=== PATIENT | female | born 1945 | race Caucasian/White ===

== ENCOUNTER 2017-08-26 14:58 | Inpatient (IN) | payer MEDICARE ==
[2017-08-26] MEDS ORDERED: Albuterol Sulfate 2.5 mg/0.5 ml Neb ONE (15:32)
[2017-08-26] MEDS ORDERED: Magnesium Sulfate 2 GM/100 ML BAG ONE (15:32)
[2017-08-26] MEDS ORDERED: Albuterol Sulfate 2.5 mg/3 ml Neb ONE (15:33)
[2017-08-26 16:44] LABS: Troponin I Less than 0.010 ng/mL (< 0.028)
[2017-08-26 19:49] LABS: Troponin I 0.012 ng/mL (< 0.028)
[2017-08-26] MEDS ORDERED: Acetaminophen 325 MG TAB PO PRN (20:40)
[2017-08-26] MEDS ORDERED: Ondansetron HCl/PF 4 MG/2 ML Vial IVP PRN (20:40)
[2017-08-26] MEDS ORDERED: Ondansetron ODT 4 MG TAB SL PRN (20:40)
[2017-08-26] MEDS ORDERED: Albuterol Sulfate 2.5 mg/3 ml Neb NEB PRN ×2 (20:41→20:55)
[2017-08-26] MEDS ORDERED: HYDROcodone/Acetaminophen 10/325 mg Tablet PO PRN (20:55)
[2017-08-26] MEDS ORDERED: Ondansetron ODT 4 MG TAB PO PRN (20:55)
[2017-08-26] MEDS ORDERED: Enoxaparin Sodium 40 MG/0.4 ML SYRINGE SC SCH (20:55)
[2017-08-26] MEDS ORDERED: HYDROcodone/Acetaminophen 5/325 mg Tablet PO PRN (20:55)
[2017-08-26 21:16] VITALS: BMI 23.6
[2017-08-26] MEDS: Famotidine 20 MG TAB PO SCH (21:43)
[2017-08-26] MEDS: guaiFENesin ER 600 MG TAB PO SCH (21:43)
[2017-08-27] MEDS: Guaifenesin DM 100-10/5 ML UDCUP PO PRN ×2 (00:05→11:09)
[2017-08-27 04:43] LABS: #Lymphocytes 0.6 thou/uL (1.20-3.40); #Monocytes 0.3 thou/uL (0.11-0.59); #Neutrophils 11.7 thou/uL (1.40-6.50); %Eosinophils 0.1 % (0.0-10.0); %Lymphocytes 4.8 % (21.0-51.0); %Monocytes 2.1 % (0.0-10.0); Hemoglobin 12.1 g/dL (12.0-16.0); Mean Corpuscular HGB CONC 31.4 g/dL (32.0-36.0); Mean Corpuscular Hemoglobin 30.6 pg (27.0-31.0); Mean Corpuscular Volume 97.5 fl (81.0-99.0); Mean Platelet Volume 10.6 fL (7.4-10.4); Platelet Count 168 thou/uL (130-400); RBC Distribution Width 12.5 % (11.5-14.5); Red Blood Cell (RBC) Count 3.95 mill/uL (4.20-5.40); White Blood Cell (WBC) Count 12.6 thou/uL (4.8-10.8)
[2017-08-27 05:03] LABS: Anion Gap 10 mmol/L (10-20); BUN (Urea Nitrogen) 16 mg/dL (9.8-20.1); Calc. Creatinine Clearance 85 mL/min (70-130); Calcium 9.2 mg/dL (7.8-10.44); Carbon Dioxide 29 mmol/L (23-31); Chloride 101 mmol/L (98-107); Estimated GFR-MDRD Greater than 90; Glucose 180 mg/dL (80-115); Potassium 4.4 mmol/L (3.5-5.1); Sodium 136 mmol/L (136-145)
[2017-08-27] MEDS: Famotidine 20 MG TAB PO SCH ×2 (08:20→20:07)
[2017-08-27] MEDS: guaiFENesin ER 600 MG TAB PO SCH ×2 (08:20→20:08)
[2017-08-27] MEDS: Enoxaparin Sodium 40 MG/0.4 ML SYRINGE SC SCH (08:20)
--- NOTE | 2017-08-27 10:36 | CON ---
DATE OF CONSULTATION: 08/27/2017 HISTORY OF PRESENT ILLNESS: This is a 71-year-old female with no primary care physician from the [facility] area presented with increasing shortness of breath and cough for several days duration. She then got short of breath. She had no chest pain, chills or sweats. She says on most days she can walk a block. 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 Smoking a pack a day for most of her life with previous history of pneumonia in the remote past, but no history of TB or asthma. PAST MEDICAL HISTORY: Pertinent for apparently chronic lung disease is noted, has not seen a physici an ever. PAST SURGICAL HISTORY: Hysterectomy. MEDICATIONS: Vitamins and Pepcid. FAMILY HISTORY: She is , otherwise unremarkable. SOCIAL HISTORY: No alcohol abuse, ongoing tobacco abuse is noted. A pack a day since childhood. No family history of breathing problems. Please note there are no old medical records to review, she has not been hospitalized at least in [place] [facility] the last 30 years. REVIEW OF SYSTEMS: Ten point negative. PHYSICAL EXAMINATION: GENERAL: Awake, alert, responsive. VITAL SIGNS: Sats 99% on 3 liters, respirations 18, temperature 97, blood pressure 190/63. CHEST: Chest reveals diffuse wheezing. CARDIAC: Normal S1-S2. ABDOMEN: Soft. No masses. LABORATORY: White count 12,000, H&H 12 and 38, platelet count is 168. Electrolytes are normal. X-ray is unremarkable. Influenza titer was negative. Chest x-ray reported, x-ray personally reviewed unremarkable. IMPRESSION: 1. Chronic obstructive pulmonary disease exacerbation and bronchitis. 2. Ongoing tobacco abuse. PLAN: She was told to refrain from smoking. I agree with present treatment, nebs, steroids, Dulera. I will follow. Pulmonary function test prior to discharge.
[2017-08-27] MEDS: Acetaminophen 325 MG TAB PO PRN ×2 (11:12→20:17)
--- NOTE | 2017-08-27 14:27 | PDOC.PN ---
- Subjective Encounter Start Date: 08/27/17 Encounter Start Time: 09:55 Pt taken off of bipap around 130am. breathing is markedly improved, no F/C, no N/V/D/C, no CP, some NASH less SOB at rest. mounika nebs, steroids, abx without problems 10 point ROS performed and neg for all systems except as per HPI. Cleared by pulm to go to the floor - Objective Resuscitation Status: Resuscitation Status FULL:Full Resuscitation MAR Reviewed: Yes Vital Signs & Weight: Vital Signs (12 hours) Temp Pulse Resp BP Pulse Ox 08/27/17 12:00 97.6 F 83 20 112/65 100 08/27/17 10:56 85 16 100 08/27/17 08:00 97.8 F 87 18 99 08/27/17 07:44 97.8 F 87 18 109/63 99 08/27/17 02:46 90 16 100 Weight Weight 133 lb 8 oz I&O: 08/26/17 08/27/17 08/28/17 06:59 06:59 06:59 Intake Total 200 480 Output Total 400 Balance -200 480 Result Diagrams: 08/27/17 03:39 08/27/17 03:39 Radiology Reviewed by me: Yes EKG Reviewed by me: Yes Phys Exam - Physical Examination Constitutional: NAD HEENT: PERRLA, moist MMs, sclera anicteric, oral pharynx no lesions Neck: no nodes, no JVD, supple, full ROM Respiratory: no rales, no rhonchi, wheezing present prolonged expiration, ebnp wheezes, improved air, symmetrical chest Cardiovascular: RRR, no significant murmur, no rub Gastrointestinal: soft, non-tender, no distention, positive bowel sounds Musculoskeletal: no edema, pulses present Neurological: non-focal, normal sensation, moves all 4 limbs Lymphatic: no nodes Psychiatric: normal affect, A&O x 3 Skin: no rash, normal turgor, cap refill <2 seconds Dx/Plan (1) Acute hypoxemic respiratory failure Code(s): J96.01 - ACUTE RESPIRATORY FAILURE WITH HYPOXIA Status: Acute Comment: improved, wean o2 as tolerated. Off of BiPAP, to floor (2) Acute exacerbation of chronic obstructive pulmonary disease (COPD) Code(s): J44.1 - CHRONIC OBSTRUCTIVE PULMONARY DISEASE W (ACUTE) EXACERBATION Status: Acute Comment: Nebs, steroids, Abx. Pulm following, will need ferry terminal agent follow up as well (3) CAP (community acquired pneumonia) Code(s): J18.9 - PNEUMONIA, UNSPECIFIED ORGANISM Status: Acute Qualifiers: Laterality: unspecified laterality Qualified Code(s): J18.9 - Pneumonia, unspecified organism Comment: BLL interstitial lower lung thomas (4) Sepsis Code(s): A41.9 - SEPSIS, UNSPECIFIED ORGANISM Status: Acute Qualifiers: Sepsis type: sepsis due to unspecified organism Qualified Code(s): A41.9 - Sepsis, unspecified organism - Plan cont current plan of care, plan discussed w/ family, continue antibiotics, respiratory therapy, out of bed/ambulate * .
--- NOTE | 2017-08-27 15:48 | HP ---
DATE OF ADMISSION: 08/26/2017 TIME OF SERVICE: 15:30 PRIMARY CARE PHYSICIAN: Really none at present. She is set up to see Dr. Mary Cruz, but has n ot actually seen her yet. CHIEF COMPLAINT: Shortness of breath. HISTORY OF PRESENT ILLNESS: Ms. Chopra is a pleasant 71-year-old white female who was a transfer fr om the [place] [facility]. She presented to the [place] [facility] for 2 days of increasing shortness of breath. She has no subjective fevers and a cough productive of some clear to yellow phlegm. She has no naus ea, vomiting, diarrhea, constipation. No chest pain, no abdominal pain, no GI bleeding. No history of coronary artery disease or atrial fibrillation. Per report on arrival to the outside Emergency Department, she was noted to be atrial fibrillation wi th RVR, she was diagnosed with pneumonia based on chest x-ray and was subsequently sent here. Here she was in sinus tachycardia. She had nebulizer treatments and subsequently remained in sinus t achycardia. Due to decreased oxygen sats and a questionable ABG, she was placed on BiPAP and we were called for admission. The patient is currently breathing comfortably on BiPAP. She denies any other complaints. Labs from the outside facility were reviewed. PAST MEDICAL HISTORY: 1. New onset atrial fibrillation. 2. Chronic obstructive pulmonary disease. 3. Tobacco abuse. PAST SURGICAL HISTORY: Hysterectomy remotely. HOME MEDICATIONS: 1. Calcium p.o. 2. Multivitamin daily. 3. Albuterol metered dose inhaler as needed. 4. DuoNeb 2-3 times a day. ALLERGIES: NKDA. FAMILY HISTORY: Negative for clotting or bleeding disorder. No immune dysfunction. SOCIAL HISTORY: Significant for tobacco abuse, ongoing. She smoked for 57 years about 1 pack per da y. No IV drug use and denies alcohol. REVIEW OF SYSTEMS: A 10-point review of systems was performed and negative for all other systems exc ept as stated per HPI. PHYSICAL EXAMINATION: VITAL SIGNS: Temperature 98.4, pulse 108, blood pressure 155/66, respiratory rate 22, satting 97% on 3 liters, currently 100% on BiPAP. GENERAL: She is awake. She is alert. She is oriented x3, well-developed, well-nourished white fema le, appears to be in mild respiratory distress, improving on BiPAP. HEENT: Normocephalic, atraumatic. Pupils equal, round, react to light bilaterally, mucous membranes are dry with the BiPAP mask. BiPAP mask is in good position. NECK: Supple. There is no lymphadenopathy, no JVD, no thyromegaly. She has normal carotid upstroke . I do not appreciate bruits. LUNGS: Clear anteriorly, she does have prolonged expiratory phase and high pitched in expiratory whe ezing. She has some faint bibasilar crackles that seem to clear with deep inspiration. There is no rhonchi. CARDIOVASCULAR: She is tachycardic, but regular. Normal S1, S2. No S3 or S4. No audible murmurs. ABDOMEN: Soft. It is nontender, nondistended. No masses or organomegaly. She has good bowel sound s present in all 4 quadrants. There is no rebound, rigidity or guarding. EXTREMITIES: Show no cyanosis or clubbing. She has trace pedal edema. SKIN: Warm, moist, and well perfused. She has no rashes, no lesions. NEUROLOGIC: Cranial nerves II-XII are grossly intact. She has a normal speech pattern, no focal iain rologic deficits, and 5/5 strength in all 4 of her extremities. MUSCULOSKELETAL: Normal to inspection. She has no signs of joint inflammation. No palpable effusio ns. LABORATORY DATA: Sodium is 135, potassium 4.4, chloride 95, bicarbonate 26, BUN 15, creatinine 0.63, glucose 111, calcium 10.3. Liver functions are normal. Total white count is 18.7. She has 67% gra nulocytes and 24% bands. Hemoglobin 13.9, hematocrit of 40.2, and platelet count 164,000. BNP was barely elevated at 114.3. CK-MB elevated at 11.2, but troponin I was undetectable. VBG show ed pH 7.37, pCO2 of 52, pO2 of 37 and bicarbonate of 30. RADIOGRAPHIC STUDIES: She had a chest x-ray that showed bibasilar interstitial opacities, but no lob ar consolidation. ASSESSMENT AND PLAN: 1. Acute hypoxemic respiratory failure requiring BiPAP. The patient's BiPAP settings were adjusted. Thirty-five minutes of critical care were spent with the patient at the bedside. 2. Acute exacerbation of chronic obstructive pulmonary disease: Likely secondary to a lower respira tory tract infection. Nebulizers treatments have been ordered, IV steroids, antibiotics for communit y-acquired pneumonia, and BiPAP as needed tonight. Hopefully, can wean off BiPAP in the morning. 3. Paroxysmal atrial fibrillation: The patient had a burst of atrial fibrillation. She is back in normal sinus rhythm. We will watch. No indication at present for anticoagulation. 4. Community-acquired pneumonia: She has some faint bibasilar interstitial opacities. We will repe at chest x-ray in the morning and continue IV fluids now.
[2017-08-27] MEDS: Nicotine 14 MG PATCH TOP SCH (18:03)
[2017-08-27] MEDS: Mometasone/Formoterol 120 PUFF INHALER INH SCH (20:12)
[2017-08-28 06:04] LABS: Anion Gap 10 mmol/L (10-20); BUN (Urea Nitrogen) 25 mg/dL (9.8-20.1); Calc. Creatinine Clearance 81 mL/min (70-130); Calcium 9.3 mg/dL (7.8-10.44); Carbon Dioxide 31 mmol/L (23-31); Chloride 102 mmol/L (98-107); Estimated GFR-MDRD Greater than 90; Glucose 139 mg/dL (80-115); Potassium 4.8 mmol/L (3.5-5.1); Sodium 138 mmol/L (136-145)
[2017-08-28] MEDS: Mometasone/Formoterol 120 PUFF INHALER INH SCH ×2 (06:06→21:11)
[2017-08-28 06:29] LABS: Band 16 % (5-11); Hemoglobin 12.7 g/dL (12.0-16.0); Lymphocytes 8 % (21-51); MDiff Complete? YES; Mean Corpuscular HGB CONC 31.6 g/dL (32.0-36.0); Mean Corpuscular Hemoglobin 30.7 pg (27.0-31.0); Mean Corpuscular Volume 97.3 fl (81.0-99.0); Mean Platelet Volume 9.6 fL (7.4-10.4); Monocytes 6 % (0-10); Neutrophil 69 % (42-75); PLT Morphology Comment Appears Adequate; Platelet Count 214 thou/uL (130-400); RBC Distribution Width 12.8 % (11.5-14.5); Reactive Lymphocytes 1 % (0-10); Red Blood Cell (RBC) Count 4.14 mill/uL (4.20-5.40); White Blood Cell (WBC) Count 13.4 thou/uL (4.8-10.8)
[2017-08-28] MEDS: Enoxaparin Sodium 40 MG/0.4 ML SYRINGE SC SCH (08:39)
[2017-08-28] MEDS: guaiFENesin ER 600 MG TAB PO SCH ×2 (08:39→20:37)
[2017-08-28] MEDS: Acetaminophen 325 MG TAB PO PRN (08:39)
[2017-08-28] MEDS: Famotidine 20 MG TAB PO SCH ×2 (08:39→20:37)
--- NOTE | 2017-08-28 11:53 | PRG ---
DATE OF SERVICE: 08/28/2017 SUBJECTIVE: This morning she is better, still short of breath. PHYSICAL EXAMINATION: VITAL SIGNS: Sats 98% on 2 liters, respirations 24, temperature 97, blood pressure 151/64. CHEST: Decreased breath sounds, no wheezing. CARDIAC: Normal S1 and S2. No gallops. ABDOMEN: Soft, no masses. LABORATORY DATA: White count 13,000, hemoglobin and hematocrit 12 and 40, platelet count normal. Electrolytes are normal. IMPRESSION: COPD\\ bronchitis. PLAN: Continue steroids, neb treatments, baseline PFT is being ordered. Continue PT. We will follow. FRANKD
--- NOTE | 2017-08-28 14:46 | PDOC.PN ---
- Subjective Encounter Start Date: 08/28/17 Encounter Start Time: 09:00 breathing much better, pulm following, i appreciate their assistance. PFTs planned for today. no CP, SOB markedly better, no F/C, no N/V/d/C 10 point RSO performed and neg fro all systems except as per hPI - Objective Resuscitation Status: Resuscitation Status FULL:Full Resuscitation MAR Reviewed: Yes Vital Signs & Weight: Vital Signs (12 hours) Temp Pulse Resp BP Pulse Ox 08/28/17 09:32 81 18 93 L 08/28/17 08:00 97.6 F 81 18 105/64 93 L 08/28/17 06:06 84 19 93 L 08/28/17 06:02 84 19 93 L 08/28/17 04:38 81 18 93 L 08/28/17 04:00 97.9 F 84 20 109/68 92 L Weight Weight 133 lb 8 oz I&O: 08/27/17 08/28/17 08/29/17 06:59 06:59 06:59 Intake Total 200 961 Output Total 400 450 Balance -200 511 Result Diagrams: 08/28/17 05:32 08/28/17 05:32 Radiology Reviewed by me: Yes Phys Exam - Physical Examination Constitutional: NAD HEENT: PERRLA, moist MMs, sclera anicteric, oral pharynx no lesions Neck: no nodes, no JVD, supple, full ROM Respiratory: no rales, no rhonchi slightly prolonged exp phase, high pitched end-exp wheezes Cardiovascular: RRR, no significant murmur, no rub Gastrointestinal: soft, non-tender, no distention, positive bowel sounds Musculoskeletal: no edema, pulses present Neurological: non-focal, normal sensation, moves all 4 limbs Lymphatic: no nodes Psychiatric: normal affect, A&O x 3 Skin: no rash, normal turgor, cap refill <2 seconds Dx/Plan (1) Acute hypoxemic respiratory failure Code(s): J96.01 - ACUTE RESPIRATORY FAILURE WITH HYPOXIA Status: Acute Comment: improved, wean o2 as tolerated. Off of BiPAP, to floor, probably ok to D/C tomorrow (2) Acute exacerbation of chronic obstructive pulmonary disease (COPD) Code(s): J44.1 - CHRONIC OBSTRUCTIVE PULMONARY DISEASE W (ACUTE) EXACERBATION Status: Acute Comment: Nebs, steroids, Abx. Pulm following, will need correction follow up as well (3) CAP (community acquired pneumonia) Code(s): J18.9 - PNEUMONIA, UNSPECIFIED ORGANISM Status: Acute Qualifiers: Laterality: unspecified laterality Qualified Code(s): J18.9 - Pneumonia, unspecified organism Comment: BLL interstitial lower lung thomas (4) Sepsis Code(s): A41.9 - SEPSIS, UNSPECIFIED ORGANISM Status: Acute Qualifiers: Sepsis type: sepsis due to unspecified organism Qualified Code(s): A41.9 - Sepsis, unspecified organism - Plan cont current plan of care, respiratory therapy, out of bed/ambulate, DVT proph w /lovenox * .
[2017-08-28] MEDS: Nicotine 14 MG PATCH TOP SCH (18:12)
[2017-08-29] MEDS: Mometasone/Formoterol 120 PUFF INHALER INH SCH (07:39)
[2017-08-29] MEDS: guaiFENesin ER 600 MG TAB PO SCH (09:15)
[2017-08-29] MEDS: Famotidine 20 MG TAB PO SCH (09:15)
[2017-08-29] MEDS: Acetaminophen 325 MG TAB PO PRN (09:16)
[2017-08-29] MEDS: Enoxaparin Sodium 40 MG/0.4 ML SYRINGE SC SCH (09:16)
--- NOTE | 2017-08-29 09:20 | PRG ---
DATE OF SERVICE: 08/29/2017 This morning, she is better, less short of breath, less coughing. PHYSICAL EXAMINATION: VITAL SIGNS: Sats are 90 on 2 liters, pulse 100, respirations 18. CHEST: Chest reveals decreased breath sounds, no wheezing. CARDIAC: Normal S1, S2. ABDOMEN: Soft, no masses. Pulmonary function test shows very severe chronic obstructive pulmonary disease, very severe reductio n in diffusing capacity. IMPRESSION: End-stage chronic obstructive pulmonary disease. PLAN: Deescalate medication, PT, supportive care. Home when stable in the next several days.
[2017-08-29 10:25] VITALS: BP 109/56; TEMP 98.1
--- NOTE | 2017-08-29 12:15 | DIS ---
DATE OF ADMISSION: 08/26/2017 DATE OF DISCHARGE: 08/29/2017 PRIMARY CARE PHYSICIAN: Mary Cruz D.O. FLEET DIRECTOR: Dr. Lujan during this hospital stay. She will see him in followup. DISCHARGE DIAGNOSES: 1. Acute exacerbation of chronic obstructive pulmonary disease. 2. Acute on chronic hypoxemic respiratory failure. 3. Community-acquired pneumonia, bilateral lower lobe interstitial opacities. 4. Sepsis. CONSULTATION: Dr. José Lujan from Pulmonology. PROCEDURES: None. HISTORY AND PHYSICAL: Ms. Chopra is a 71-year-old female transferred to the emergency department he re on 08/26/2017 from [facility] for acute exacerbation of COPD, pneumonia, and acute hypoxemic respiratory failure. On arrival here, she was in sinus rhythm, but has had a short burst of atrial fibrillation at outside facility. Here, she was hypoxemic and requiring BiPAP initially and we were called for admission. HOSPITAL COURSE: The patient was seen and examined, labs and chest x-ray were reviewed. The patient was placed on the Intermediate Care Unit for BiPAP overnight. She received IV Solu-Medrol, nebulize r treatments with DuoNeb scheduled and q.2 hours p.r.n. albuterol, and IV antibiotics with levofloxac in. Overnight, she did well and was weaned off BiPAP and was stable for transferred to the floor. She was seen by Pulmonary in consultation. Care was agreed and she was continued to be monitored. Overnight, 08/27/2017 to 08/28/2017, she continued to improve. Oxygen requirements were improved and she was able to be taken off of oxygen while nonambulatory. She had no increased shortness of breat h and felt better. Management was continued and by 08/29/2017 she was feeling better and stable for discharge. We did a walking ambulatory saturation, she did drop down to 81% on room air with ambulat ion. She already had home oxygen set up for nighttime use, but was increased when ambulatory and the refore new orders were sent. She was otherwise stable for discharge with outpatient followup. PHYSICAL EXAMINATION: The patient was seen and examined on the day of discharge. Discharge plan and disposition were discussed with the patient [id number] at the bedside. DISCHARGE MEDICATIONS: 1. Albuterol 2.5 mg nebulized every 2 hours p.r.n. 2. DuoNebs q.4 hours scheduled. 3. Guaifenesin ER 1200 mg p.o. b.i.d. 4. Pepcid 20 mg p.o. daily. 5. Calcium carbonate 1 tablet b.i.d. as pre-admit. 6. Levofloxacin 750 mg p.o. q.p.m., 7 tablets, no refills. 7. Dulera 200/5 two puffs inhaled b.i.d. A prescription for one inhaler with 2 refills sent. 8. Multivitamin daily. 9. Prednisone 40 mg daily, to decrease by 10 mg daily every third day until tapered off. FOLLOWUP APPOINTMENTS: 1. Primary care physician, Dr. Juan Cruz. Of note, the patient is not actually seen Dr. Cruz , but is scheduled to see her. 1. Dr. José Lujan for hospital followup and continue pulmonary care. DISCHARGE CONDITION: Stable. DISPOSITION: She will be discharged home via private vehicle. DISCHARGE ACTIVITY: Per cardiopulmonary limits. DISCHARGE DIET: Heart healthy recommended.
[2017-08-29] MEDS ORDERED: predniSONE 20 MG TAB PO SCH (14:30)
--- NOTE | 2017-08-29 14:40 | PFT ---
PATIENT HISTORY: HEIGHT: 64 IN WEIGHT:133 SMOKER: YES HOW LON YEARS PACKS PER DAY 1 PRODUCTIVE COUGH: YES LUNG DISEASE: PHYSICIAN INTERPRETATION FINAL REPORT: THERE IS VERY SEVERE REDUCTION IN EXPIRATORY FLOWS OF VITAL CAPACITY WITH SIGNIFICANT IMPROVEMENT AFTER BRONCHODILATOR THERAPY. RV IS HYPER INFLATED. RV/TLC HYPEREXPANDED, GAS TRANSFER SERIOUSLY REDUCED. IMPRESSION: SERIOUS OBSTRUCTIVE VENTILATORY IMPAIRMENT. SERIOUS REDUCED DIFFUSION CAPACITY. Graphics Software Engineer: CODY Application Designer: CODY WARE
[2017-08-30] MEDS ORDERED: predniSONE 20 MG TAB PO SCH (08:00)
== END 2017-08-29 15:28 | disposition home or self-care (01) | DRG 871 ==
LOC: ERS 14:58 → IMCU/EMU 15:44 → T4-B 08-27 23:48
PROVIDERS: ADMIT Internal Medicine Infectious Disease; ATTEND Internal Medicine Infectious Disease
PROC: 5A09357 Assistance with Respiratory Ventilation, Less than 24 Consecutive Hours, Continuous Positive Airway Pressure (ICD-10-PCS; principal; 2017-08-26)
DX: A41.9 Sepsis, unspecified organism (principal); J96.01 Acute respiratory failure with hypoxia; J18.9 Pneumonia, unspecified organism; J44.0 Chronic obstructive pulmonary disease with (acute) lower respiratory infection; J44.1 Chronic obstructive pulmonary disease with (acute) exacerbation; I48.0 Paroxysmal atrial fibrillation; F17.210 Nicotine dependence, cigarettes, uncomplicated; Z79.899 Other long term (current) drug therapy
CPT/HCPCS: 36415; 36416; 80048; 83735; 85025; 93005; 94060; 94640; 94660; 94727; 94729; 94760; 96365; J1650; J2920; J3475; J7611; J7620

== ENCOUNTER 2017-09-12 12:36 | Outpatient (CLI) | payer MEDICARE ==
--- NOTE | 2017-09-12 13:23 | RAD ---
CHEST 2 VIEWS: Date: 09/12/17 HISTORY: Dyspnea. COMPARISON: 08/26/17. FINDINGS: Cardiac silhouette and pulmonary vasculature are unremarkable. Lungs are hyperinflated. Mediastinum i s midline. There is no confluent air space consolidation, pneumothorax, or pleural fluid apparent. Os seous structures are demineralized. Compression of the superior end plate of the lower thoracic verte bral body on the lateral view results in loss of height by approximately 40%. There is mild retropuls ion. IMPRESSION: 1. COPD. 2. Lower thoracic vertebral body compression, age indeterminate. POS: [facility]
== END 2017-09-12 12:37 | disposition home or self-care (01) ==
LOC: RAD 12:36
PROVIDERS: ATTEND Internal Medicine Pulmonary Disease
DX: R06.00 Dyspnea, unspecified (principal); J44.9 Chronic obstructive pulmonary disease, unspecified; G95.29 Other cord compression
CPT/HCPCS: 71046

== ENCOUNTER 2021-06-28 10:56 | Outpatient (CLI) | payer MEDICARE | END 2021-06-28 10:57 | disposition home or self-care (01) | LOC: TBSIIMAG 10:56 | PROVIDERS: ATTEND Family Medicine | DX: S22.060G Wedge compression fracture of T7-T8 vertebra, subsequent encounter for fracture with delayed healing (principal) | CPT/HCPCS: 72146 ==